=== PATIENT | female | born 1980 | race Caucasian/White ===

== ENCOUNTER 2017-11-20 05:53 | Inpatient (IN) | payer OTHER ==
--- NOTE | 2017-11-19 11:34 | MH ---
cc: Ana Walker MD DATE OF ADMISSION: 11/20/2017 REASON FOR ADMISSION: A 38-week intrauterine for repeat with mildly elevated blood pressures and proteinuria consistent with preeclampsia without severe features. HISTORY OF PRESENT CONDITION: Racquel is a 37-year-old white female, 2, para 1, with LMP 02/16/2017 and EDC 12/03 x 6-week ultrasound, currently at 37 and 6/7th on 11/18/2017 when ultrasound revealed a reassuring biophysical profile. JACINDA of 14, head first baby with a posterior placenta and biophysical profile of 8/8. Doppler's are normal. She was scheduled for a repeat the next week after she had a placental abruption during labor with her first child and she declines trial of labor after . Over the last several days, she has been flirting with some mildly elevated blood pressures. Today it was 130/80. She had gained 4 pounds in 4 days. She had 3+ protein. Repeat blood pressure was 140/90. She had mild headaches and some visual scotomas. She was therefore scheduled for a repeat one week earlier. MEDICAL HISTORY: Significant for some anxiety and depression in the past. She does not tolerate NSAIDs. She has had severe gastroesophageal reflux disease during the . She has a history of dysplasia, which will be followed up afterwards. She has been on Zoloft very low dose, Zantac b.i.d. and BuSpar 10 mg t.i.d. She is O positive. Hemoglobin was 14.3. She is immune to [place] measles and chickenpox. Serology was negative. GC and chlamydia were negative. Hepatitis B and C negative. Her 1-hour Glucola was 164, but her 3-hour Glucola was normal. She is group B strep positive. PHYSICAL EXAMINATION: She is an edematous-appearing young woman at 214 pounds. Her blood pressure is as stated. NECK: She has no thyroid enlargement. LUNGS: Clear. HEART: Rate and rhythm are regular. ABDOMEN: Fundus is 40 weeks. Estimated Weight is 8-1/2 to 9 pounds. PELVIS: Clinically adequate and she is 1 cm; however, we are planning to do a repeat section. EXTREMITIES: Show 2-3+ edema. She is normoreflexic. IMPRESSION: Late , early term intrauterine with probable macrosomia, preeclampsia without severe features and a history of prior section. PLAN: Repeat on . Risks, benefits, expectations, and alternatives have been discussed in detail and she has signed consents and is ready to proceed. Ana Walker MD PPC/DL , 09:51 AM , 10:32 AM
[~2017-11-20] VITALS: Ht 167.6 cm; Wt 96.0 kg
[~2017-11-20 05:53] MED LIST: OMEP20TA39 PO; OXYC1SOL5 PO; PREN0.01 PO; Z.0.BCPILL; ZOLO20CO PO
[2017-11-20 06:59] LABS: BASOPHIL % 0.4 % (0.0-2.0); EOSINOPHIL # 0.1 TH/MM3 (0-0.4); EOSINOPHIL % 0.6 % (0.0-4.0); HEMATOCRIT 31.1 % (35.0-46.0); HEMOGLOBIN 9.9 GM/DL (11.6-15.3); LYMPHOCYTE # 2.1 TH/MM3 (1.0-4.8); MEAN CELL VOLUME 70.5 FL (80.0-100.0); MEAN CORPUSCULAR HEMOGLOBIN 22.5 PG (27.0-34.0); MEAN PLATELET VOLUME 7.8 FL (7.0-11.0); MONO % 7.4 % (0.0-8.0); MONOCYTE # 0.7 TH/MM3 (0-0.9); NEUT % 67.6 % (16.0-70.0); PLATELET COUNT 336 TH/MM3 (150-450); RED BLOOD COUNT 4.42 MIL/MM3 (4.00-5.30); RED CELL DISTRIBUTION WIDTH 15.9 % (11.6-17.2)
[2017-11-20] MEDS ORDERED: ceFAZolin 2 GM PREMIX 50 ML IV SCH (07:00)
[2017-11-20] MEDS ORDERED: CITRIC ACID-SODIUM CITRATE LIQ 30 ML UDC PO SCH (07:00)
[2017-11-20] MEDS ORDERED: LACTATED RINGER'S 1000 ML IV ONE (07:00)
[2017-11-20] MEDS ORDERED: ACETAMINOPHEN 1000 MG/100 ML 100 ML IV ONE ×2 (07:05→08:45)
[2017-11-20] MEDS ORDERED: MORPHINE SULFATE PF 5 MG/10 ML VIAL ONE (07:05)
[2017-11-20] MEDS ORDERED: METOCLOPRAMIDE HCL 10 MG/2 ML VIAL ONE (07:05)
[2017-11-20] MEDS ORDERED: FAMOTIDINE 20 MG/2 ML VIAL ONE (07:08)
[2017-11-20] MEDS: LACTATED RINGER'S 1000 ML IV SCH ×2 (07:19→16:41)
[2017-11-20] MEDS ORDERED: BUSP10TA PO (07:39)
--- NOTE | 2017-11-20 08:40 | PD.OB.DELI ---
Procedure Note Section Procedure Pre Op Diagnosis: (1) Spontaneous rupture of membranes (2) delivery due to previous difficult delivery, delivered, current hospitalization Post Op Diagnosis: (1) Delivered by section Performed by Ana Walker Procedure: Repeat Low Transverse Sec Indication for delivery: Desired elective repeat Informed consent obtained: For anesthesia, For procedure Confirmed correct: Patient, Procedure, Site, Time-out taken Anesthesia: Spinal Medication prior to procedure: As documented in eMAR Monitoring during procedure: Blood pressure monitoring, doppler Urinary catheter: Inserted using sterile technique, To dependent drainage Sterile preparation: Duraprep, In usual fashion Operative Features Skin Incision: Pfannenstiel Uterine Incision: Low transverse w/knife / blunt ext Membranes Ruptured: Previously Presentation: Occiput anterior Delivery date: November 20, 2017 Delivery time: 08:39 Delivery of : Assisted Infant: Female One Minute : 8 Five Minute : 9 Status of infant: Viable, Cord blood, Umbilical cord, Nursery present Placenta delivered: Intact Medications: Antibiotics, Oxytocin Estimated blood loss: 500 Procedure tolerated: Well Maternal Condition: Stable Condition: Stable Procedure in detail dictated Ana Walker MD November 20, 2017 08:40
[2017-11-20] MEDS ORDERED: oxyCODONE/ACETAMINOPHEN 5 MG/325 MG TAB PO PRN (08:45)
[2017-11-20] MEDS ORDERED: OXYTOCIN 30 UNITS-500ML PREMIX 500 ML IV ONE (08:45)
[2017-11-20] MEDS ORDERED: SODIUM CHLORIDE 0.9% FLUSH 10 ML FLUSH IV FLUSH PRN (08:45)
[2017-11-20] MEDS ORDERED: ONDANSETRON ODT 4 MG TAB PO PRN (08:45)
[2017-11-20] MEDS ORDERED: ACETAMINOPHEN 325 MG TAB PO PRN (08:45)
[2017-11-20] MEDS: SODIUM CHLORIDE 0.9% FLUSH 10 ML FLUSH IV FLUSH SCH (09:00)
--- NOTE | 2017-11-20 09:18 | MP ---
cc: Ana Walker MD DATE OF OPERATION: 11/20/2017 PREOPERATIVE DIAGNOSIS: Prior section, 38-week intrauterine , mildly elevated blood pressures in the office, she had rupture of membranes at 4:30 a.m., desired repeat . POSTOPERATIVE DIAGNOSIS: Prior section, 38-week intrauterine , mildly elevated blood pressures in the office, she had rupture of membranes at 4:30 a.m., desired repeat , delivered. PROCEDURE PERFORMED: Repeat low transverse segment section. ANESTHESIA: Spinal with Duramorph. SURGEON: Ana Walker MD OFFENSIVE COORDINATOR: L and D staff. FINDINGS: A living female radha Hernandez was delivered from [place] with clear fluid and no nuchal cord. Her Apgars were 8 at 1 and 9 at 5. She weighed 7 pounds 13 ounces. Placenta was posterior delivered intact with 3-vessel cord and [facility] ESTIMATED BLOOD LOSS: Less than 500 mL. Uterus, tubes, and ovaries were unremarkable. Sponge, instrument and needle count were correct. INDICATIONS: The patient called at 5 a.m. stating she had ruptured her membranes, says she was scheduled for a 9:30 section. She was just told to come on in. She came in and it was documented a category 1 strip. Clear fluid. Mom and baby doing well. PROCEDURE NOTE: She was walked to the OR, spinal was administered. She was prepped and draped in the usual sterile fashion. A Jasso catheter was inserted. She had sequential stockings on prior to spinal. A timeout was performed with everybody in attendance and she received 2 grams of Ancef prior to incision. After being draped and assuring adequate analgesia, a Pfannenstiel incision was made with a knife and carried down through to the rectus fascia. The rectus fascia was then incised with a knife and grabbed with straight Kochers on the superior surface and taken off the rectus muscle. The inferior edge was treated the same. The rectus muscle was in the midline. The parietal peritoneum was entered and a bladder flap was created off the lower uterine segment. The incision was bluntly expanded in a vertical fashion and the was delivered with the findings as noted above. Her cord was clamped x 2 after 45 seconds, cut and then she was handed to the neonatology team in attending. Cord blood was obtained and the placenta was delivered manually intact with a 3-vessel cord. The uterus was exteriorized, cleaned gently with a lap sponge and then closed with chromic in a running interlocking fashion with a second or horizontal imbricating layer. It was noted to be hemostatic, replaced in the pelvic cavity and again hemostasis was assured. Irrigation was then performed and then the rectus muscle was approximated with a Vicryl in a non-interlocking fashion. The fascia was closed with #1 Vicryl in a non-interlocking fashion. The subcutaneous layer was closed with 3-0 plain and the skin was closed with 4-0 Vicryl on a Priyank needle. Estimated blood loss was less than 500 mL. Mom and baby went to the recovery room in stable condition. Ana Walker MD PPC/DL , 08:44 AM , 09:17 AM
[2017-11-20] MEDS ORDERED: OXYTOCIN 30 UNITS-500ML PREMIX 500 ML ONE (09:37)
[2017-11-20 11:08] LABS: BILIRUBIN, URINE NEG (NEG); BLOOD, URINE TRACE (NEG); GLUCOSE,URINE NEG (NEG); KETONE, URINE 10 mg/dL (NEG); NITRITE,URINE NEG (NEG); PH, URINE 8.5 (5.0-8.5); SQUAMOUS EPITHELIAL CELL URINE <1 /hpf (0-5); URINE COLOR YELLOW (YELLW/STRAW); URINE LEUKOCYTE ESTERASE NEG (NEG)
[2017-11-20] MEDS ORDERED: EPIDURAL-NALOXONE HCL 0.4 MG/ML AMP IV PUSH PRN (11:45)
[2017-11-20] MEDS ORDERED: EPIDURAL-DIPHENHYDRAMINE HCL 50 MG/ML VIAL IV PUSH PRN (11:45)
[2017-11-20] MEDS ORDERED: EPIDURAL-DO NOT ADMINISTER ANTICOAGULANTS PRN (11:45)
[2017-11-20] MEDS ORDERED: EPIDURAL-NO SYSTEMIC NARCOTICS PRN (11:45)
[2017-11-20] MEDS ORDERED: ONDANSETRON HCL 4 MG/2 ML VIAL IV ONE (12:00)
[2017-11-20] MEDS ORDERED: OXYTOCIN 10 UNIT/ML AMP IV ONE (12:00)
[2017-11-20] MEDS ORDERED: ePHEDrine/NS 25 MG/5 ML SYRINGE IV ONE (12:00)
[2017-11-20] MEDS ORDERED: DEXAMETHASONE SOD PHOS 4 MG/ML VIAL IV ONE (12:00)
[2017-11-20] MEDS ORDERED: PHENYLEPH/NS 1000 MCG/10 ML SYR IV ONE (12:00)
[2017-11-20] MEDS: IBUPROFEN 600 MG TAB PO PRN ×2 (12:29→18:27)
[2017-11-20] MEDS: EPIDURAL-DIPHENHYDRAMINE HCL 50 MG CAP PO PRN ×2 (12:33→18:35)
[2017-11-20] MEDS ORDERED: LACTATED RINGER'S 1000 ML INJ 1,000 ML IV SCH (13:40)
[2017-11-20] MEDS ORDERED: OXYTOCIN 30 UNITS-500ML PREMIX 500 ML IV PRN (13:45)
[2017-11-20 15:30] VITALS: BP 117/63
[2017-11-20] MEDS: DOCUSATE SODIUM 50 MG/SENNA 8.6 MG TAB PO PRN (16:39)
[2017-11-20] MEDS: oxyCODONE/ACETAMINOPHEN 5 MG/325 MG TAB PO PRN (20:15)
[2017-11-20 20:34] VITALS: BP 127/64; PULSE 87; RESP 18; TEMP 98.4
[2017-11-20] MEDS ORDERED: ZOLPIDEM TARTRATE 5 MG TAB PO PRN (21:00)
[2017-11-21] MEDS: IBUPROFEN 600 MG TAB PO PRN ×4 (00:22→20:01)
[2017-11-21] MEDS: oxyCODONE/ACETAMINOPHEN 5 MG/325 MG TAB PO PRN ×6 (00:22→21:06)
[2017-11-21 01:12] VITALS: BP 108/59; PULSE 86; RESP 18; TEMP 98.5
[2017-11-21 05:00] VITALS: BP 105/65; PULSE 76; RESP 18; TEMP 98.1
[2017-11-21 05:53] LABS: AUTOMATED NEUTROPHIL # 8.4 TH/MM3 (1.8-7.7); BASOPHIL # 0.1 TH/MM3 (0-0.2); BASOPHIL % 0.4 % (0.0-2.0); EOSINOPHIL % 0.4 % (0.0-4.0); HEMATOCRIT 27.1 % (35.0-46.0); HEMOGLOBIN 8.6 GM/DL (11.6-15.3); LYMPH % 21.2 % (9.0-44.0); LYMPHOCYTE # 2.5 TH/MM3 (1.0-4.8); MEAN CELL VOLUME 71.5 FL (80.0-100.0); MEAN CORPUSCULAR HEMOGLOBIN 22.7 PG (27.0-34.0); MEAN CORPUSCULAR HGB CONC 31.7 % (32.0-36.0); MEAN PLATELET VOLUME 8.3 FL (7.0-11.0); MONO % 7.7 % (0.0-8.0); MONOCYTE # 0.9 TH/MM3 (0-0.9); NEUT % 70.3 % (16.0-70.0); PLATELET COUNT 261 TH/MM3 (150-450); RED BLOOD COUNT 3.79 MIL/MM3 (4.00-5.30); WHITE BLOOD COUNT 11.9 TH/MM3 (4.0-11.0)
[2017-11-21] MEDS: DOCUSATE SODIUM 50 MG/SENNA 8.6 MG TAB PO PRN ×2 (08:22→20:01)
[2017-11-21] MEDS: SODIUM CHLORIDE 0.9% FLUSH 10 ML FLUSH IV FLUSH SCH (08:23)
--- NOTE | 2017-11-21 08:36 | HHI.OB ---
Subjective Post Operative Day: 1 Remarks doing well Objective Vitals/I&O Vital Signs Date Time Temp Pulse Resp B/P (MAP) Pulse Ox O2 Delivery O2 Flow Rate FiO2 11/21/17 05:00 98.1 76 18 105/65 (78) 11/21/17 01:12 98.5 86 18 108/59 (75) 11/20/17 20:34 98.4 87 18 127/64 (85) 11/20/17 15:30 117/63 (81) Result Diagram: 11/21/17 0437 Objective Remarks GENERAL: Well-nourished, well-developed patient. CARDIOVASCULAR: Regular rate and rhythm without murmurs, gallops, or rubs. RESPIRATORY: Breath sounds equal bilaterally. No accessory muscle use. ABDOMEN/GI: Abdomen soft, non-tender, bowel sounds present. Incision: dressing Clean, dry and intact. Fundus: Firm, non-tender at umbilicus. GENITOURINARY: Light to moderate bleeding. EXTREMITIES: No cyanosis or edema, non-tender, without signs of DVT. Medications and IVs Current Medications Medications (Trade) Dose Ordered Sig/Yo Route Start Time Stop Time Status Last Admin Lactated Ringer's 1,000 ml @ 150 mls/hr Q6H40M IV 11/20/17 07:00 11/20/17 07:19 (Bicitra Liq) 30 ml CRITICAL CARE UNIT MANAGER PO 11/20/17 07:00 11/23/17 06:59 11/20/17 07:19 Cefazolin Sodium/ Dextrose 50 ml @ 100 mls/hr CRITICAL CARE UNIT MANAGER IV 11/20/17 07:00 11/23/17 06:59 Lactated Ringer's 1,000 ml @ 100 mls/hr Q10H IV 11/20/17 13:40 11/21/17 09:39 11/20/17 16:41 Oxytocin 500 ml @ 100 mls/hr UNSCH X1 PRN IV 11/20/17 13:45 11/21/17 13:44 (NS Flush) 2 ml BID IV FLUSH 11/20/17 09:00 11/21/17 08:23 (NS Flush) 2 ml UNSCH PRN IV FLUSH 11/20/17 08:45 (Mylicon Chew) 80 mg QID PRN PO 11/20/17 08:45 (Tylenol) 650 mg Q6H PRN PO 11/20/17 08:45 (Motrin) 600 mg Q6H PRN PO 11/20/17 08:45 11/21/17 05:59 (Percocet 5-325 Mg) 1 tab Q4H PRN PO 11/20/17 08:45 11/20/17 16:39 (Percocet 5-325 Mg) 2 tab Q4H PRN PO 11/20/17 08:45 11/21/17 08:22 (Shirley-Colace) 2 tab Q12H PRN PO 11/20/17 08:45 11/21/17 08:22 (Ambien) 5 mg HS PRN PO 11/20/17 21:00 (M-M-R Ii Inj) 0.5 ml ONCE ONCE SQ 11/21/17 16:00 11/21/17 16:01 (Boostrix Inj) 0.5 ml ONCE ONCE IM 11/21/17 16:00 11/21/17 16:01 (Zofran Odt) 4 mg Q6H PRN PO 11/20/17 08:45 ([facility]) NO SYSTEMIC NARCOTICS TO BE GIVEN FO... UNSCH PRN .XX 11/20/17 11:45 11/21/17 11:44 (Narcan Inj) 0.4 mg UNSCH PRN IV PUSH 11/20/17 11:45 11/21/17 11:44 (Benadryl Inj) 25 mg Q6H PRN IV PUSH 11/20/17 11:45 11/21/17 11:44 (Benadryl) 50 mg Q6H PRN PO 11/20/17 11:45 11/21/17 11:44 11/20/17 18:35 ([facility]) ALL NURSING DEPARTMENTS UNSCH PRN .XX 11/20/17 11:45 11/21/17 11:44 Assessment/Plan Problem List: (1) Delivered by section ICD Codes: Z38.01 - Single liveborn infant, delivered by Assessment and Plan POD #1 s/p repeat c/s doing well, OOB, routine post op care, advance diet Discharge Planning routine Attending Attestation pt seen by Susi Ohara MD Nov 21, 2017 08:36
[2017-11-21] MEDS ORDERED: PILL SPLITTER OTHER PRN (09:00)
[2017-11-21] MEDS: SERTRALINE HCL 50 MG TAB PO SCH (12:57)
[2017-11-21] MEDS ORDERED: DIPHTH/TETANUS/ACEL PERTUSSIS (BOOSTER) 0.5 ML VIAL/PFS IM ONE (16:00)
[2017-11-21] MEDS ORDERED: MEASLES, MUMPS, RUBELLA VACCINE 0.5 ML VIAL SQ ONE (16:00)
[2017-11-21] MEDS: SIMETHICONE 80 MG CHEWABLE TAB PO PRN ×2 (17:15→20:01)
[2017-11-21 21:10] VITALS: BP 141/81; PULSE 88; RESP 18; TEMP 98.2
[2017-11-22] MEDS: oxyCODONE/ACETAMINOPHEN 5 MG/325 MG TAB PO PRN ×6 (01:27→22:30)
[2017-11-22] MEDS: IBUPROFEN 600 MG TAB PO PRN ×3 (01:27→14:09)
[2017-11-22] MEDS: SIMETHICONE 80 MG CHEWABLE TAB PO PRN ×2 (05:52→18:03)
--- NOTE | 2017-11-22 08:57 | HHI.OB ---
Subjective Post Operative Day: 2 Remarks doing well, ambulating, no N/V Objective Vitals/I&O Vital Signs Date Time Temp Pulse Resp B/P (MAP) Pulse Ox O2 Delivery O2 Flow Rate FiO2 11/21/17 21:10 98.2 88 18 141/81 (101) Result Diagram: 11/21/17 0779 Objective Remarks GENERAL: Well-nourished, well-developed patient. CARDIOVASCULAR: Regular rate and rhythm without murmurs, gallops, or rubs. RESPIRATORY: Breath sounds equal bilaterally. No accessory muscle use. ABDOMEN/GI: Abdomen soft, non-tender, bowel sounds present. Incision: Clean, dry and intact. Fundus: Firm, non-tender at umbilicus. GENITOURINARY: Light to moderate bleeding. EXTREMITIES: No cyanosis or edema, non-tender, without signs of DVT. Medications and IVs Current Medications Medications (Trade) Dose Ordered Sig/Yo Route Start Time Stop Time Status Last Admin Lactated Ringer's 1,000 ml @ 150 mls/hr Q6H40M IV 11/20/17 07:00 11/20/17 07:19 (Bicitra Liq) 30 ml TRAIN PLANNER PO 11/20/17 07:00 11/23/17 06:59 11/20/17 07:19 Cefazolin Sodium/ Dextrose 50 ml @ 100 mls/hr TRAIN PLANNER IV 11/20/17 07:00 11/23/17 06:59 (NS Flush) 2 ml BID IV FLUSH 11/20/17 09:00 11/21/17 08:23 (NS Flush) 2 ml UNSCH PRN IV FLUSH 11/20/17 08:45 (Mylicon Chew) 80 mg QID PRN PO 11/20/17 08:45 11/22/17 05:52 (Tylenol) 650 mg Q6H PRN PO 11/20/17 08:45 (Motrin) 600 mg Q6H PRN PO 11/20/17 08:45 11/22/17 07:12 (Percocet 5-325 Mg) 1 tab Q4H PRN PO 11/20/17 08:45 11/20/17 16:39 (Percocet 5-325 Mg) 2 tab Q4H PRN PO 11/20/17 08:45 11/22/17 05:52 (Shirley-Colace) 2 tab Q12H PRN PO 11/20/17 08:45 11/21/17 20:01 (Ambien) 5 mg HS PRN PO 11/20/17 21:00 (Zofran Odt) 4 mg Q6H PRN PO 11/20/17 08:45 (Zoloft) 25 mg DAILY PO 11/21/17 09:00 11/21/17 12:57 (Pill Splitter) 1 ea UNSCH PRN OTHER 11/21/17 09:00 Assessment/Plan Problem List: (1) Delivered by section ICD Codes: Z38.01 - Single liveborn , delivered by Assessment and Plan POD #2 s/p repeat c/s doing well, OOB, routine post op care, advance diet Discharge Planning routine Attending Attestation pt seen by Susi Ohara MD Nov 22, 2017 08:57
[2017-11-22] MEDS: SODIUM CHLORIDE 0.9% FLUSH 10 ML FLUSH IV FLUSH SCH (09:00)
[2017-11-22] MEDS: DOCUSATE SODIUM 50 MG/SENNA 8.6 MG TAB PO PRN (09:57)
[2017-11-22] MEDS: SERTRALINE HCL 50 MG TAB PO SCH (09:58)
[2017-11-22] MEDS: LACTATED RINGER'S 1000 ML IV SCH (12:20)
--- NOTE | 2017-11-22 19:40 | HHI.DCPOC ---
Discharge Care Plan Your Health Problems Are: Pelvic pain Report Symptoms to Your Doctor -Temperature above 100.5 degrees -Redness, of incision or excessive or foul smelling drainage -Unusual pain or calf pain -Increased vaginal bleeding -Painful or difficulty urinating -Feelings of extreme sadness or anxiety after 2 weeks Goals to Promote Your Health * To prevent worsening of your condition and complications * To maintain your health at the optimal level Directions to Meet Your Goals Take your medications as prescribed Follow your dietary instruction Follow activity as directed Ensure plenty of rest for recovery Drink fluids for hydration Keep your appointments as scheduled Take your immunizations and boosters as scheduled If your symptoms worsen call your PCP, if no PCP go to Urgent Care Center or Emergency Room Smoking is Dangerous to Your Health. Avoid second hand smoke Call the 24-hour crisis hotline for domestic abuse at Susi Bey MD Nov 22, 2017 19:40
[2017-11-22] MEDS ORDERED: KETOROLAC TROMETHAMINE 60 MG/2 ML (IM) VIAL IM ONE (20:15)
[2017-11-23] MEDS: oxyCODONE/ACETAMINOPHEN 5 MG/325 MG TAB PO PRN ×3 (02:39→14:32)
[2017-11-23] MEDS ORDERED: OXYC1TAB63 PO (07:31)
[2017-11-23] MEDS ORDERED: IBUP-232 PO (07:31)
[2017-11-23] MEDS: LACTATED RINGER'S 1000 ML IV SCH (07:34)
[2017-11-23] MEDS: SODIUM CHLORIDE 0.9% FLUSH 10 ML FLUSH IV FLUSH SCH (07:35)
[2017-11-23 08:00] VITALS: BP 118/75; PULSE 85; RESP 18; TEMP 98.2; O2SAT 97
--- NOTE | 2017-11-23 08:38 | HHI.OB ---
Subjective Post Operative Day: 3 Remarks doing well, +flatus, ready to go home Objective Vitals/I&O vss afeb Result Diagram: 11/21/17 0437 Objective Remarks GENERAL: Well-nourished, well-developed patient. CARDIOVASCULAR: Regular rate and rhythm without murmurs, gallops, or rubs. RESPIRATORY: Breath sounds equal bilaterally. No accessory muscle use. ABDOMEN/GI: Abdomen soft, non-tender, bowel sounds present. Incision: Clean, dry and intact. Fundus: Firm, non-tender at umbilicus. GENITOURINARY: Light to moderate bleeding. EXTREMITIES: No cyanosis or edema, non-tender, without signs of DVT. Medications and IVs Current Medications Medications (Trade) Dose Ordered Sig/Yo Route Start Time Stop Time Status Last Admin Lactated Ringer's 1,000 ml @ 150 mls/hr Q6H40M IV 11/20/17 07:00 11/20/17 07:19 (NS Flush) 2 ml BID IV FLUSH 11/20/17 09:00 11/21/17 08:23 (NS Flush) 2 ml UNSCH PRN IV FLUSH 11/20/17 08:45 (Mylicon Chew) 80 mg QID PRN PO 11/20/17 08:45 11/22/17 18:03 (Tylenol) 650 mg Q6H PRN PO 11/20/17 08:45 (Motrin) 600 mg Q6H PRN PO 11/20/17 08:45 11/22/17 14:09 (Percocet 5-325 Mg) 1 tab Q4H PRN PO 11/20/17 08:45 11/20/17 16:39 (Percocet 5-325 Mg) 2 tab Q4H PRN PO 11/20/17 08:45 11/23/17 02:39 (Shirley-Colace) 2 tab Q12H PRN PO 11/20/17 08:45 11/22/17 09:57 (Ambien) 5 mg HS PRN PO 11/20/17 21:00 (Zofran Odt) 4 mg Q6H PRN PO 11/20/17 08:45 (Zoloft) 25 mg DAILY PO 11/21/17 09:00 11/22/17 09:58 (Pill Splitter) 1 ea UNSCH PRN OTHER 11/21/17 09:00 Assessment/Plan Problem List: (1) Delivered by section ICD Codes: Z38.01 - Single liveborn infant, delivered by Assessment and Plan POD #3 s/p repeat c/s doing well, OOB, routine post op care, advance diet d/c home Discharge Planning routine Attending Attestation pt seen by Susi Ohara MD Nov 23, 2017 08:38
[2017-11-23] MEDS: DOCUSATE SODIUM 50 MG/SENNA 8.6 MG TAB PO PRN (09:01)
[2017-11-23] MEDS: SERTRALINE HCL 50 MG TAB PO SCH (09:01)
[2017-11-23] MEDS: IBUPROFEN 600 MG TAB PO PRN (14:31)
== END 2017-11-23 15:51 | disposition home or self-care (01) | DRG 766 ==
LOC: H2EB 05:53 → H1EA 10:24
PROVIDERS: ADMIT Obstetrics & Gynecology; ATTEND Obstetrics & Gynecology
PROC: 10D00Z1 Extraction of Products of Conception, Low, Open Approach (ICD-10-PCS; principal; 2017-11-20)
DX: O34.219 Maternal care for unspecified type scar from previous cesarean delivery (principal); O14.94 Unspecified pre-eclampsia, complicating childbirth; O99.62 Diseases of the digestive system complicating childbirth; K21.9 Gastro-esophageal reflux disease without esophagitis; O99.824 Streptococcus B carrier state complicating childbirth; O42.92 Full-term premature rupture of membranes, unspecified as to length of time between rupture and onset of labor; Z37.0 Single live birth; Z3A.38 38 weeks gestation of pregnancy
CPT/HCPCS: 59025; 80307; 81001; 85025; 86850; 86900; 86901; 90715; J0131; J1100; J1885; J2274; J2370; J2405; J2590; J2765; J7120; Q0163